=== PATIENT | male | born 1940 | race Caucasian/White ===

== ENCOUNTER 2017-05-11 14:08 | Outpatient (CLI) | payer MEDICARE | END 2017-05-11 14:09 | disposition home or self-care (01) | LOC: BICRAD 14:08 | PROVIDERS: ATTEND Internal Medicine | DX: K59.00 Constipation, unspecified (principal); R14.0 Abdominal distension (gaseous) | CPT/HCPCS: 74019 ==

== ENCOUNTER 2017-05-14 10:50 | Outpatient (CLI) | payer MEDICARE | END 2017-05-14 10:51 | disposition home or self-care (01) | LOC: BICCT 10:50 | PROVIDERS: ATTEND Internal Medicine | DX: R13.10 Dysphagia, unspecified (principal); J44.9 Chronic obstructive pulmonary disease, unspecified; K44.9 Diaphragmatic hernia without obstruction or gangrene | CPT/HCPCS: 71250 ==

== ENCOUNTER 2017-05-17 09:57 | Outpatient (CLI) | payer MEDICARE ==
--- NOTE | 2017-05-18 10:45 | RAD ---
MODIFIED BARIUM SWALLOW: TECHNIQUE: The patient was given different consistencies of barium under fluoroscopic observation to assess swal lowing. INDICATIONS: Dysphagia, feeding difficulties. FINDINGS: There is mild swallowing dysfunction. The patient clears relatively well with only mild pooling in t he vallecula and piriform sinuses. No evidence of aspiration identified. AP images were taken during swallowing and there appears to be evidence of esophageal reflux. This c ould be better evaluated with a dedicated esophagram study. See speech pathologist's recommendation. POS: SOFY
== END 2017-05-17 09:58 | disposition home or self-care (01) ==
PROVIDERS: ATTEND Internal Medicine
DX: R13.10 Dysphagia, unspecified (principal); R63.3 Feeding difficulties
CPT/HCPCS: 74230; G8996-GN-CJ; G8997-GN-CJ; G8998-GN-CJ

== ENCOUNTER 2017-07-05 09:04 | Observation (INO) | payer MEDICARE ==
[2017-07-04 11:20] VITALS: BMI 25.7
[2017-07-05 09:53] LABS: #Eosinphils 0.1 thou/uL (0.0-0.7); #Lymphocytes 1.1 thou/uL (1.20-3.40); #Monocytes 0.7 thou/uL (0.11-0.59); #Neutrophils 5.6 thou/uL (1.40-6.50); %Basophils 0.5 % (0.0-1.0); %Eosinophils 0.9 % (0.0-10.0); %Monocytes 8.8 % (0.0-10.0); %Neutrophils 74.7 % (42.0-75.0); Hemoglobin 14.6 g/dL (14.0-18.0); Mean Corpuscular HGB CONC 33.1 g/dL (32.0-36.0); Mean Corpuscular Hemoglobin 32.7 pg (27.0-31.0); Mean Platelet Volume 9.9 fL (7.4-10.4); Platelet Count 170 thou/uL (130-400); RBC Distribution Width 12.5 % (11.5-14.5); Red Blood Cell (RBC) Count 4.46 mill/uL (4.70-6.10); White Blood Cell (WBC) Count 7.4 thou/uL (4.8-10.8)
[2017-07-05 10:00] LABS: INR-International Normal Ratio 1.1; Prothrombin Time 14.7 SEC (12.0-14.7)
[2017-07-05 10:01] LABS: PTT 28.6 SEC (22.9-36.1)
[2017-07-05] MEDS ORDERED: Lidocaine 1% (PF) 30 ML VIAL ONE (10:10)
[2017-07-05] MEDS ORDERED: Heparin 10,000 UNITS/1 ML VIAL ONE ×2 (10:12→10:56)
[2017-07-05] MEDS ORDERED: Fentanyl 100 MCG/2 ML VIAL ONE (10:14)
[2017-07-05 10:15] LABS: Anion Gap 12 mmol/L (10-20); BUN (Urea Nitrogen) 15 mg/dL (8.4-25.7); Calc. Creatinine Clearance 105 mL/min (70-130); Calcium 9.7 mg/dL (7.8-10.44); Carbon Dioxide 25 mmol/L (23-31); Chloride 107 mmol/L (98-107); Estimated GFR-MDRD Greater than 90; Glucose 99 mg/dL (83-110); Sodium 140 mmol/L (136-145)
[2017-07-05] MEDS ORDERED: Propofol 1,000 MG/100 ML VIAL IV ONE (10:20)
[2017-07-05] MEDS ORDERED: Promethazine HCl 25 MG/ML VIAL IM PRN (10:52)
[2017-07-05] MEDS ORDERED: Ondansetron HCl/PF 4 MG/2 ML Vial IVP PRN ×2 (10:52→14:42)
[2017-07-05] MEDS ORDERED: Promethazine HCl 25 MG/ML VIAL SLOW IVP PRN (10:52)
[2017-07-05] MEDS ORDERED: Isoproterenol 0.2 MG/1 ML AMP ONE ×2 (10:53→10:55)
[2017-07-05] MEDS ORDERED: Protamine Sulfate 50 MG/5 ML VIAL ONE ×2 (10:55→10:57)
[2017-07-05] MEDS ORDERED: Furosemide 40 MG/4 ML VIAL ONE (12:35)
[2017-07-05] MEDS ORDERED: Heparin 30,000 units/30 ml VIAL ONE (13:52)
[2017-07-05] MEDS ORDERED: PROPOFOL 200 MG/20 ML VIAL ONE (13:52)
[2017-07-05] MEDS ORDERED: Succinylcholine Chloride 20 MG/ML 10 ml SYRINGE FS ONE (13:52)
[2017-07-05] MEDS ORDERED: Ondansetron HCl/PF 4 MG/2 ML Vial ONE (13:52)
[2017-07-05] MEDS ORDERED: PHENYLEPHRINE-NS 100 MCG/ML 10 ML SYRINGE ONE (13:52)
[2017-07-05] MEDS ORDERED: diphenhydrAMINE 25 MG CAP PO PRN (14:42)
[2017-07-05] MEDS ORDERED: Acetaminophen 325 MG TAB PO PRN (14:42)
[2017-07-05] MEDS ORDERED: Bisacodyl 5 MG TAB PO PRN (14:42)
[2017-07-05] MEDS ORDERED: Temazepam 15 MG CAP PO PRN (14:42)
[2017-07-05] MEDS ORDERED: Mag-Al 1200 mg/1200 mg/30 ML UDCUP PO PRN (14:42)
[2017-07-05] MEDS ORDERED: Nitroglycerin 0.4 MG TAB (25 Tab Bottle) SL PRN (14:42)
[2017-07-05] MEDS ORDERED: Bisacodyl 10 MG SUPP PR PRN (14:42)
[2017-07-05] MEDS ORDERED: traMADol HCl 50 MG TAB PO PRN (14:42)
[2017-07-05] MEDS ORDERED: Silver Sulfadiazine 1% Cream 50 GM JAR TOP PRN (14:42)
--- NOTE | 2017-07-05 16:46 | OP ---
DATE OF PROCEDURE: 07/05/2017 PROCEDURE: 1. Comprehensive EP testing with 3D mapping and ablation of atrial fibrillation. 2. Transseptal catheterization x2. 3. Intracardiac echocardiography. CLINICAL INDICATION: Atrial fibrillation. [employer] MANAGER: John Castorena M.D. ASA CLASSIFICATION: 3. ANESTHESIA: General endotracheal anesthesia per Anesthesiology. ADDITIONAL CARDIAC MEDICATIONS. Isoproterenol 10 mcg per minute infusion. Total heparin given 17,00 0 units. Total protamine given 40 mg. ACUTE COMPLICATIONS: None apparent. TOTAL FLUOROSCOPY TIME: Zero. TOTAL RADIOFREQUENCY TIME: 70 minute 35 seconds. METHODS: After informed consent was obtained, the patient was taken to the EP lab in fasting state. Both the groins were prepped and draped using ultrasound guidance. The right and left femoral veins were accessed and wires were inserted into the central venous system. Wires were used to deploy a s tandard 11-Moldovan sheath and a long 8-Moldovan sheath in the left groin and 2 long 8-Moldovan sheaths in the right groin, a 10-Moldovan echo probe was placed in left groin and advanced up to the right atrium and the right ventricle for imaging. A circular ablation catheter placed in right groin and advanced up to the right atrium. A 3D map was obtained of the right atrium and the coronary sinus. A 20-em e catheter placed in left groin, advanced up to the coronary sinus, proximal end was in the darrius te rminalis. Patient was then anticoagulated and transseptal catheterization was performed on 2 occasio ns. A 3D map was obtained in the left atrium. The patient did have electrical reconnection of the r ight pulmonary veins in the posterior wall of the left atrium. Patient was then intubated and the te mperature probe was placed in the esophagus. This was co-located with a location sensor so that it c ould be located on the 3D mapping system. Ablation was delivered re-isolating the pulmonary veins of the right side and the entire posterior wall of the left atrium between the veins was also isolated. At the conclusion of procedure, isoproterenol was given. There was no further recurrence of arrhyt hmias. Catheter was then withdrawn. Heparin reversed. Sheaths were pulled. Hemostasis was achieve d with a collagen closure device. RESULTS: 1. Baseline intervals, spontaneous cycle length 800 milliseconds, GA interval 240 milliseconds, QRS interval 82 milliseconds, QT interval 360 milliseconds, HV interval 56 milliseconds. 2. Atrial function. The patient was in sinus rhythm, but had a frequent ectopic activity on the pos terior wall of left atrium. This was isolated as described in the method section. 3. Ablation details a total of 17 minutes 36 seconds of RF, lesion was applied with a CrossTxt er open, irrigated ablation catheter. IMPRESSION: Successful redo PVAI with re-isolation of veins and posterior wall of the left atrium. RECOMMENDATION: A 23-hour observation.
[2017-07-05] MEDS ORDERED: Atorvastatin Calcium 20 MG TAB PO SCH (21:00)
[2017-07-05] MEDS: Apixaban 5 MG TAB PO SCH (22:03)
[2017-07-06] MEDS ORDERED: Levothyroxine Sodium 75 MCG TAB PO SCH (06:00)
[2017-07-06] MEDS: Apixaban 5 MG TAB PO SCH (08:15)
[2017-07-06 08:31] VITALS: BP 109/59; TEMP 98.8
[2017-07-06] MEDS ORDERED: Ubidecarenone 50 MG CAP PO SCH (09:00)
[2017-07-06] MEDS ORDERED: Polyethylene Glycol 3350 17 GM Packet PO SCH (09:00)
--- NOTE | 2017-07-06 14:19 | DIS ---
DATE OF ADMISSION: 07/05/2017 DATE OF DISCHARGE: 07/06/2017 DIAGNOSIS: Paroxysmal atrial fibrillation. PROCEDURES: Comprehensive EP testing with 3D mapping ablation of atrial fibrillation, transseptal ca theterization x2, and intracardiac echocardiography. SCREEN WRITER: Dr. John Castorena. TOTAL RF TIME: 17 minutes, 35 seconds. HISTORY OF PRESENT ILLNESS: Mr. Miller was admitted for an elective redo PVAI for paroxysmal atrial fibrillation. He presented to the operating room in sinus rhythm, but had frequent ectopic activity noted in the posterior wall of the left atrium. This is isolated. Successful redo PVAI with re-iso lation of veins in posterior wall of the left atrium. The patient was observed overnight and has had a stable uneventful recovery. He has maintained a sinus rhythm over the night and is not on antiarr hythmic medications. He has been up ambulating and tolerating p.o. intake. He has a Waters catheter in place that was placed by his urologist given his artificial sphincter, which he is scheduled to [place] the Waters removed on Sunday. He is to be discharged with Waters in place. He has not had any hear t racing, palpitations, chest pain, pressure, syncope, or near syncope. He denies any stroke-like sy mptoms. His groin sites are stable, but did have a very slight oozing immediately postoperatively. DISCHARGE MEDICATIONS: The patient continues Eliquis 5 mg b.i.d., MiraLax as needed, simethicone 80 mg as needed, aspirin 81 mg daily, levothyroxine 75 mcg daily, Lipitor 20 mg daily. He was given pre scriptions for Protonix 40 mg daily x1 month, Carafate 1 gram p.o. q.i.d. x2 weeks, potassium chlorid e 10 mEq daily if taking Lasix, and Lasix 20 mg daily as needed for shortness of breath and fluid ret ention. DISCHARGE INSTRUCTIONS: The patient no soaking baths for 1 week. No lifting greater than 15 pounds for 1 week, okay to shower. He will follow up in clinic in 4-6 weeks. No restrictions after 1 week. CONDITION: Stable for discharge.
--- NOTE | 2017-07-18 22:52 | EKG ---
Test Reason : POST EP STUDY/ABLATI Blood Pressure : / mmHG Vent. Rate : 070 BPM Atrial Rate : 070 BPM P-R Int : 256 ms QRS Dur : 106 ms QT Int : 450 ms P-R-T Axes : 038 014 017 degrees QTc Int : 486 ms Sinus rhythm with 1st degree A-V block Prolonged QT Abnormal ECG When compared with ECG of 21-APR-2016 06:31, No significant change was found Confirmed by Daisy PIRES ([id number]) on 07/18/2017 10:52:20 PM Referred By: JAMARI Confirmed By:Daisy PIRES
--- NOTE | 2017-07-18 22:58 | EKG ---
Test Reason : Blood Pressure : / mmHG Vent. Rate : 072 BPM Atrial Rate : 072 BPM P-R Int : 248 ms QRS Dur : 096 ms QT Int : 404 ms P-R-T Axes : 024 002 009 degrees QTc Int : 442 ms Sinus rhythm with 1st degree A-V block Otherwise normal ECG When compared with ECG of 05-JUL-2017 12:54, (Unconfirmed) No significant change was found Confirmed by Daisy PIRES ([id number]) on 07/18/2017 10:58:17 PM Referred By: JAMARI Confirmed By:Daisy PIRES
== END 2017-07-06 12:28 | disposition home or self-care (01) ==
LOC: CCL 09:04 → 2SW 14:37
PROVIDERS: ADMIT Internal Medicine Cardiovascular Disease; ATTEND Internal Medicine Cardiovascular Disease
PROC: 02583ZZ Destruction of Conduction Mechanism, Percutaneous Approach (ICD-10-PCS; principal; 2017-07-05)
DX: I48.91 Unspecified atrial fibrillation (principal)
CPT/HCPCS: 76942; 80048; 85025; 85347 ×2; 85610; 85730; 93005 ×2; 93613; 93623; 93656; 93662; C1731; C1732 ×2; C1759; C1769; G0378; 93010; A4216; J1644; J1940; J2001; J2405; J2704; J2720; J3010